=== PATIENT | female | born 2000 | race Hispanic/Latino ===

== ENCOUNTER 2021-09-27 16:28 | Emergency (ER) | payer OTHER, SELFPAY ==
--- NOTE | 2021-09-27 16:35 | ED.LOWEXIN ---
HPI - Extremity Injury (Lower) General Chief Complaint: Extremity Injury, Lower Stated Complaint: RT knee pain Time Seen by Provider: 09/27/21 16:35 Source: patient and RN notes reviewed Mode of arrival: ambulatory Limitations: no limitations History of Present Illness HPI Narrative: Patient states she was at a wedding on Sunday and was dancing jumping around. She felt a pop and had pain in her right knee. She iced it and elevated it and it has been doing better. complaint: knee injury Onset (ago): day(s) (3) Injury: Right: knee Type of Injury: inversion Place: street/outdoors Severity: moderate Relieving factors: nothing Exacerbating factors: weight bearing and movement Context: jumping Associated symptoms: snap/pop sensation Other symptoms: none Treatments prior to arrival: cold therapy Related Data Home Medications Medication Instructions Recorded Confirmed No Home Medications 09/27/21 09/27/21 Allergies Allergy/AdvReac Type Severity Reaction Status Date / Time No Known Allergies Allergy Verified 09/27/21 16:42 Review of Systems Review of Systems: All systems reviewed & are unremarkable except as noted in HPI and below PMFSH Past Medical History Medical History (Updated 09/27/21 @ 16:57 by Jus Harris MD) No active medical problems Surgical History Surgical History (Updated 09/27/21 @ 16:56 by Jus Harris MD) No pertinent past surgical history Family History Family History (System 10/14/20 @ 15:14 by Liam Juarez) Mother Hypertension Social History Social History (Updated 09/27/21 @ 16:56 by Jus Harris MD) Smoking status: Never smoker Alcohol intake: current Alcohol use details: Occasional Substance use: current Substance use type: marijuana Other substance usage details: occasional Exam Const: General: healthy appearing, no acute distress and alert Nutritional Appearance: well nourished Orientation/consciousness: patient oriented x3 Other: Female nurse in room during examination. HENMT: Head: normal to inspection Ears: external ears normal Eyes: General: appearance normal, both eyes and all related structures Conjunctivae: conjunctivae normal Pupils: Equal, round and reactive pupils present EOM: EOMs intact bilaterally Neck: Neck: normal visual inspection Resp: Effort & Inspection: normal respiratory effort Auscultation: clear to auscultation bilaterally Cardio: Rate: regular rate Rhythm: regular rhythm GI: GI Palp: Yes Soft to palpation and No Tenderness to palpation present (GI) Auscultation: normal bowel sounds Back/Spine/Pelvis: Cervical Spine: cervical ROM normal Thoracic/Lumbar Spine: thoraco-lumbar ROM normal Skin: General skin exam: normal color Rashes: no rashes Neuro: General: patient oriented x3, moves all extremities, no focal motor deficits and CN's II-XI intact bilaterally Speech: normal speech Gait exam (Neuro): Normal gait present Extrem: General: normal exam except as noted and no clubbing, cyanosis or edema Left lower extremity: knee Details: knee ligament exam normal Details: anterior drawer test normal, valgus stress test normal, varus stress test normal and Sharda's test normal and Catie's Test Details: positive medially (mild) Psych: Appearance: grossly normal and well kempt Mental Status: mental status grossly normal Affect: normal affect Attitude: cooperative Thought content: Yes Normal thought content present Discharge Plan Discharge Clinical Impression: Acute internal derangement of knee Qualifiers: Laterality: right Qualified Code(s): M23.91 - Unspecified internal derangement of right knee Patient Disposition: Home, Self-Care Condition: Stable Instructions: Knee Sprain (ED) Additional Instructions: can change to heat as needed. Follow-up with your primary care or orthopedic physician for further evaluation if needed. Prescriptions: No Action No Home Medications
[2021-09-27 16:39] VITALS: BP 179/94; PULSE 77; RESP 16; TEMP 36.2; O2SAT 100
[2021-09-27 17:03] VITALS: BP 179/94; PULSE 77; RESP 16; TEMP 36.2; O2SAT 100
== END 2021-09-27 17:04 | disposition home or self-care (01) ==
PROVIDERS: Emergency Provider Emergency Medicine; PCP Family Medicine
DX: M23.91 Unspecified internal derangement of right knee (principal)
CPT/HCPCS: 99281

== ENCOUNTER 2023-01-20 10:00 | Outpatient (CLI) | payer BC, SELFPAY ==
[2023-01-20 10:18] LABS: Hematocrit 43.6 % (35.0-49.0); Hemoglobin 14.6 g/dL (12.0-15.0); Mean Corpuscular HGB Conc 33.5 g/dL (32.0-36.0); Mean Corpuscular Hemoglobin 28.7 pg (27.0-31.0); Mean Corpuscular Volume 85.7 fL (78.0-102.0); Mean Platelet Volume 9.2 fl (9.2-11.8); Platelet Count Result 308 K/mm3 (150-420); Red Blood Count 5.09 M/mm3 (4.20-5.40); Red Cell Distribution Width 12.8 % (11.6-14.4); White Blood Count 5.5 K/mm3 (4.8-10.8)
[2023-01-20 11:16] LABS: Anion Gap 11 mmol/L (8-16); Blood Urea Nitrogen 10 mg/dL (7-18); Carbon Dioxide 24 mmol/L (21-32); Chloride 106 mmol/L (98-108); Estimated Glomerular Filt Rate > 60; Glucose 88 mg/dL (70-99); Osmolality Calculated 290 mOsm/kg (285-295); Potassium 3.9 mmol/L (3.5-5.1); Sodium 141 mmol/L (136-145); Thyroid Stimulating Hormone 2.32 uIU/mL (0.36-3.74)
[2023-01-25 19:10] LABS: Vitamin D 25 Hydroxy 26 ng/mL (30-100)
== END 2023-01-20 10:01 | disposition home or self-care (01) ==
LOC: CHSLAB 10:02
PROVIDERS: PCP Nurse Practitioner Family; Visit Provider Nurse Practitioner Family
DX: Z13.29 Encounter for screening for other suspected endocrine disorder (principal); E55.9 Vitamin D deficiency, unspecified; G43.909 Migraine, unspecified, not intractable, without status migrainosus
CPT/HCPCS: 36415; 80048; 82306; 84443; 85027

== ENCOUNTER 2023-12-10 13:47 | Emergency (ER) | payer BC, SELFPAY ==
--- NOTE | ~2023-12-10 | CT_ITS ---
EXAMINATION: CT abdomen pelvis w con DATE: 12/10/2023 15:22 INDICATION: Abdominal pain. Nausea. Constipation. TECHNIQUE: Computed tomography (CT) of the abdomen and pelvis was performed with 100 mL Omnipaque 350 intravenous contrast. Automated exposure control and iterative reconstruction technique were employe d. The dose-length product was 1146.97 mGy-cm. COMPARISON: None. FINDINGS: The visualized portions of the lung bases are clear without pneumonia or pleural effusion. The heart size is normal. No pericardial effusion. The liver, gallbladder, spleen, pancreas, adrenal glands, and kidneys are normal. There are no dilated loops of bowel. The appendix is normal. There ar e no pathologically enlarged lymph nodes. There is physiologic fluid in the pelvis. The bones are unr emarkable. IMPRESSION: 1. No etiology for the patient's symptoms. Reviewed, dictated and finalized at location E.
[2023-12-10 13:50] VITALS: BP 147/98; PULSE 85; RESP 18; TEMP 36.8
[2023-12-10 14:10] LABS: Appearance Urine Sl Cloudy (Clear); Bilirubin Urine Negative (Negative); Blood Urine Negative (Negative); Color Urine Yellow (Yellow); Glucose Urine UA Negative (Negative); Ketones Urine Negative (Negative); Leukocyte Esterase Ur Trace LEU/UL (Negative); Nitrate Urine Negative (Negative); Protein Urine Negative (Negative); Specific Grav Ur >= 1.030 (1.010-1.020); Urobilinogen Urine 0.2 mg/dL (0.2-1.0)
[2023-12-10 14:13] LABS: Urine Pregnancy Test Negative
[2023-12-10 14:14] LABS: Add Urine Microscopic? YES; Bacteria Urine 3+ /hpf; Pregnancy On Board Control Positive; RBC Urine None seen /hpf (0-2); Squamous Epithelial Cell Urine Moderate /hpf (Few); WBC Urine 0-3 /hpf (0-3)
[2023-12-10 14:22] LABS: Basophils Absolute Auto 0.04 K/mm3 (0.00-0.10); Basophils Percent Auto 0.5 % (0.0-1.0); Eosinophils Absolute Auto 0.13 K/mm3 (0.02-0.50); Eosinophils Percent Auto 1.6 % (1.0-6.0); Hematocrit 39.7 % (35.0-49.0); Hemoglobin 13.7 g/dL (12.0-15.0); Immature Granulocyte Absolute 0.02 K/mm3 (0.00-0.00); Immature Granulocyte Percent A 0.2 % (0.0-0.0); Lymphocytes Absolute Auto 2.11 K/mm3 (1.10-4.50); Lymphocytes Percent Auto 26.1 % (18.0-42.0); Mean Corpuscular HGB Conc 34.5 g/dL (32-36); Mean Corpuscular Hemoglobin 29.1 pg (27.0-31.0); Mean Corpuscular Volume 84.5 fL (78.0-102.0); Mean Platelet Volume 9.2 fl (9.2-11.8); Monocytes Absolute Auto 0.62 K/mm3 (0.10-0.90); Monocytes Percent Auto 7.7 % (2.0-11.0); Neutrophils Absolute Auto 5.17 K/mm3 (1.70-7.20); Neutrophils Percent Auto 63.9 % (50.0-70.0); Platelet Count Result 324 K/mm3 (150-420); Red Cell Distribution Width 12.5 % (11.6-14.4); White Blood Count 8.1 K/mm3 (4.8-10.8)
[2023-12-10] MEDS: SODIUM CHLORIDE 0.9% IV 1,000 ML 999 ML IV CONT (14:33)
[2023-12-10 14:38] LABS: Alanine Aminotransferase 13 U/L (14-59); Albumin Level 3.9 g/dL (3.4-5.0); Alkaline Phosphatase 68 U/L (46-116); Anion Gap 9 mmol/L (4-12); Aspartate Amino Transferase 13 U/L (15-37); Bilirubin,Total 0.6 mg/dL (0.00-1.00); Blood Urea Nitrogen 10 mg/dL (7-18); Calcium 9.1 mg/dL (8.5-10.1); Carbon Dioxide 25 mmol/L (21-32); Chloride 103 mmol/L (98-108); Estimated CRCL calculation 97 ml/min; Estimated Glomerular Filt Rate > 60; Glucose 86 mg/dL (70-99); Lipase 25 U/L (16-77); Osmolality Calculated 282 mOsm/kg (285-295); Potassium 3.5 mmol/L (3.5-5.1); Sodium 137 mmol/L (136-145); Total Protein 7.6 g/dL (6.4-8.2)
[2023-12-10 14:41] LABS: Lactic Acid Reflex 0.8 mmol/L (0.4-2.0)
[2023-12-10 14:45] LABS: INR 0.9; Partial Thromboplastin Time 29.9 Sec (23.9-30.70); Prothrombin Time 10.1 Seconds (9.50-12.1)
--- NOTE | 2023-12-10 15:23 | PC.NURSE ---
PT HAS RETURNED FROM CT, AWAITING RESULTS AT THIS TIME. MOTHER AT BEDSIDE. DENIES ANY NEEDS OR COMPLAINTS. WILL CONTINUE TO MONITOR.
--- NOTE | 2023-12-10 15:37 | ED.ABDPAIN ---
HPI - Abdominal Pain General Chief Complaint: Abdominal Pain Stated Complaint: ab. pain Time Seen by Provider: 12/10/23 13:51 Source: patient and family Mode of arrival: ambulatory Limitations: no limitations History of Present Illness HPI narrative: this is a 23-year-old female that presents with right lower quadrant pain and radiates into her suprapubic area with no dysuria no hematuria no fever chills. Patient states that she is not had a menstrual period since late October, there is having some nausea with no episodes of vomiting no diarrhea constipation no chest pain or shortness of breath. MD elicited complaint: abdominal pain and flank pain Pertinent past history: none Onset (ago): day(s) Pain Consistency: constant Severity: mild Related Data Allergies Allergy/AdvReac Type Severity Reaction Status Date / Time No Known Allergies Allergy Verified 12/10/23 13:59 Review of Systems Review of Systems: All systems reviewed & are unremarkable except as noted in HPI and below PMFSH Past Medical History Medical History BMI 38.0-38.9,adult No active medical problems Surgical History Surgical History No pertinent past surgical history Family History Family History Mother Hypertension Father Heart disease Sibling No problems noted. 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 Gender identity (if verbalized by the patient): Female Exam Const: General: cooperative, healthy appearing, comfortable, no acute distress and well developed HENMT: Head: normal to inspection Chest: Chest palpation & inspection: normal inspection of the chest and normal palpation of entire chest wall Resp: Effort & Inspection: normal respiratory effort and able to speak in complete sentences Cardio: Jugular venous distension: no JVD Palpation: normal PMI Rate: regular rate Rhythm: regular rhythm GI: Inspection: normal to inspection GI Palp: Yes abdominal tenderness Auscultation: normal bowel sounds : General: Yes bimanual renal exam normal bilaterally Neuro: General: oriented to person, oriented to place, oriented to time and patient oriented x3 Course Course Emergency Course: CT of the abdomen and pelvis without any significant abnormality the UA shows 3+ bacteria consistent with urinary tract infection the rest of her blood work unremarkable patient received IV fluids Vital Signs Vital signs: Vital Signs Oxygen Delivery Room Air 12/10/23 13:47 Temperature 36.8 C 12/10/23 13:50 Pulse Rate 85 12/10/23 13:50 Respiratory Rate 18 12/10/23 13:50 Blood Pressure 147/98 H 12/10/23 13:50 Oxygen Delivery Room Air 12/10/23 13:50 MDM - Abdominal Pain Lab Data 12/10/23 14:17 12/10/23 14:17 Labs: Lab Results 12/10/23 12/10/23 Range/Units 14:00 14:17 WBC 8.1 (4.8-10.8) K/mm3 RBC 4.70 (4.20-5.40) M/mm3 Hgb 13.7 (12.0-15.0) g/dL Hct 39.7 (35.0-49.0) % MCV 84.5 (78.0-102.0) fL MCH 29.1 (27.0-31.0) pg MCHC 34.5 (32-36) g/dL RDW 12.5 (11.6-14.4) % Plt Count 324 (150-420) K/mm3 MPV 9.2 (9.2-11.8) fl Immature Gran % (Auto) 0.2 H (0.0-0.0) % Neut % (Auto) 63.9 (50.0-70.0) % Lymph % (Auto) 26.1 (18.0-42.0) % [place] % (Auto) 7.7 (2.0-11.0) % Eos % (Auto) 1.6 (1.0-6.0) % Baso % (Auto) 0.5 (0.0-1.0) % Lymph # (
[2023-12-10 15:50] VITALS: BP 144/80; PULSE 87; RESP 16; O2SAT 98
== END 2023-12-10 15:50 | disposition home or self-care (01) ==
PROVIDERS: Emergency Provider Emergency Medicine; PCP Family Medicine
DX: N39.0 Urinary tract infection, site not specified (principal)
CPT/HCPCS: 36415; 74177; 80053; 81001; 81025; 83605; 83690; 85025; 85610; 85730; 96360; 99284; J7030; Q9967

== ENCOUNTER 2024-12-04 15:45 | Emergency (ER) | payer BC, SELFPAY ==
--- NOTE | ~2024-12-04 | CT_ITS ---
CLINICAL INDICATION: Right lower quadrant pain COMPARISON: 12/10/2023. TECHNIQUE: Multiple contiguous axial images of the abdomen and pelvis were performed following the ad ministration of with 100 mL Omnipaque-350 intravenous contrast The dose-length product (DLP) was 1124.56 mGy-cm. Automated exposure control and iterative reconstruction technique were employed. FINDINGS/OBSERVATIONS: Visualized lower thorax: The bilateral lung bases are clear. The heart is of normal size, without pericardial effusion. Small hiatal hernia is present. Liver: The liver demonstrates homogeneous enhancement and is borderline enlarged measuring 19 cm in longitud inal dimension. Gallbladder and biliary system: The gallbladder is only minimally distended, and otherwise unremarkable. Pancreas: The pancreas enhances homogeneously without ductal dilatation. Spleen: The spleen enhances homogeneously and is not enlarged.. Kidneys: 5 mm calculus within the upper pole of the left kidney. Prominence of the bilateral renal pelvises, without obstructing calculi, likely secondary to bladder distention. The remainder of the bilateral kidneys otherwise enhance symmetrically without hydronephrosis or kayden tional renal calculi. Adrenal glands: Unremarkable. Gastrointestinal tract: Fecal stasis within the colon. Appendix: The air-filled appendix is of normal caliber (axial series, images 96 through 112) Vasculature: Unremarkable. Lymph nodes: No pathologically enlarged or morphologically suspicious lymph nodes within the retroperitoneum or at the root of the mesentery. Pelvic structures: The bladder is distended, and otherwise unremarkable. The the uterus is anteverted and anteflexed retroflexed. A 27 mm involuting cyst is identified within the right hemipelvis, likely an involuting cyst. Body wall and musculoskeletal: Small fat-containing right inguinal hernia. No significant degenerative disease within the lower thoracic or lumbosacral spine. IMPRESSION: Normal appendix. Involuting cyst within the right hemipelvis for which ultrasound may be performed for confirmation. Small fat-containing right inguinal hernia. Reviewed, dictated and finalized at location A. IMPRESSION: Normal appendix. Involuting cyst within the right hemipelvis for which ultrasound may be perform ed for confirmation. Small fat-containing right inguinal hernia.
[2024-12-04 15:45] VITALS: BP 177/94; PULSE 100; RESP 18; TEMP 36.7; O2SAT 98
[2024-12-04 16:08] LABS: Add Urine Microscopic? YES; Appearance Urine Clear (Clear); Glucose Urine UA Negative (Negative); Leukocyte Esterase Ur Negative LEU/UL (Negative); Nitrate Urine Negative (Negative); Specific Grav Ur 1.020 (1.010-1.020)
[2024-12-04] MEDS: SODIUM CHLORIDE 0.9% IV 1,000 ML 999 ML IV CONT (16:11)
[2024-12-04] MEDS: ONDANSETRON INJ 4 MG/2 ML VIAL IV PUSH (16:11)
[2024-12-04 16:16] LABS: Pregnancy On Board Control Positive
[2024-12-04 16:24] LABS: Hematocrit 41.3 % (35.0-49.0); Hemoglobin 13.9 g/dL (12.0-15.0); Immature Granulocyte Percent A 0.4 % (0.0-0.0); Lymphocytes Absolute Auto 2.41 K/mm3 (1.10-4.50); Mean Corpuscular HGB Conc 33.7 g/dL (32-36); Mean Corpuscular Hemoglobin 28.3 pg (27.0-31.0); Mean Corpuscular Volume 84.1 fL (78.0-102.0); Nucleated Red Blood Cells Absolute Auto 0.00 K/mm3 (0.00-0.00); Nucleated Red Blood Cells Perc 0.0 % (0-0.0); Platelet Count Result 398 K/mm3 (150-420); Red Blood Count 4.91 M/mm3 (4.20-5.40); White Blood Count 9.4 K/mm3 (4.8-10.8)
[2024-12-04 16:34] LABS: Alanine Aminotransferase 23 U/L (6-35); Albumin Level 4.6 g/dL (3.5-5.1); Alkaline Phosphatase 81 U/L (38-126); Anion Gap 7 mmol/L (4-12); Aspartate Amino Transferase 28 U/L (14-36); Bilirubin,Total 0.7 mg/dL (0.2-1.3); Blood Urea Nitrogen 11 mg/dL (7-17); Calcium 9.2 mg/dL (8.4-10.2); Carbon Dioxide 27 mmol/L (22-30); Chloride 108 mmol/L (98-107); Estimated CRCL calculation 102 ml/min; Estimated Glomerular Filt Rate > 60; Glucose 99 mg/dL (65-110); Lipase 60 U/L (23-300); Osmolality Calculated 293 mOsm/kg (285-295); Potassium 3.6 mmol/L (3.4-5.0); Sodium 142 mmol/L (137-145); Total Protein 7.7 g/dL (6.3-8.2)
[2024-12-04 16:37] LABS: INR 0.9; Partial Thromboplastin Time 31.2 Sec (23.9-30.70); Prothrombin Time 10.1 Seconds (9.50-12.1)
[2024-12-04 17:05] VITALS: BP 131/79; PULSE 93; RESP 16; O2SAT 99
--- NOTE | 2024-12-04 17:24 | ED.ABDPAIN ---
HPI - Abdominal Pain General Chief Complaint: Abdominal Pain Stated Complaint: abdominal pain Time Seen by Provider: 12/04/24 15:53 Source: patient Mode of arrival: ambulatory Limitations: no limitations History of Present Illness HPI narrative: this is a 24-year-old female who presents with right lower quadrant abdominal pain was seen at an urgent care and was diagnosed with urinary tract infection and started on antibiotics. Patient abdominal pain persisted currently at about a 3/10 no cramping does have some mild right flank pain with no fever chills no hematuria does have nausea with vomiting. MD elicited complaint: abdominal pain Onset (ago): day(s) Related Data Allergies Allergy/AdvReac Type Severity Reaction Status Date / Time No Known Allergies Allergy Verified 12/04/24 15:54 Review of Systems Review of Systems: All systems reviewed & are unremarkable except as noted in HPI and below PMFSH Past Medical History Medical History BMI 38.0-38.9,adult No active medical problems Surgical History Surgical History No pertinent past surgical history Family History Family History Mother Hypertension Father Heart disease Sibling No problems noted. Grandparent Breast cancer Social History Social History Smoking status: Never smoker Second hand tobacco smoke exposure: Yes Alcohol intake: current Alcohol use details: rare Substance use: current Substance use type: marijuana Other substance usage details: occasional Do You Feel Safe in your Home?: Yes Lack of Transportation: No Lack of Food: Never True Current Housing: I Have Housing Concerned About Future Housing: No Difficulty Paying Gas/Electric Bills: No Difficulty Paying for Meds: No Currently Unemployed: No Education: High School Diploma/GED Difficulty w/ Childcare or Family Care: No Living arrangements: with family Occupation/Education: occupation 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, 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 Gender identity (if verbalized by the patient): Female Sexual Orientation (if Verbalized by the Patient): Straight or Heterosexual Exam Const: General: healthy appearing and no acute distress Nutritional Appearance: well nourished Orientation/consciousness: patient oriented x3 Limitations: no limitations Chest: Chest palpation & inspection: normal inspection of the chest Resp: Effort & Inspection: normal respiratory effort Auscultation: clear to auscultation bilaterally Cardio: Rate: regular rate Rhythm: regular rhythm GI: GI Palp: Yes Soft to palpation and Yes Tenderness to palpation present (GI) Auscultation: normal bowel sounds : General: Yes bladder normal to palpation Urinary Catheter: Urinary Catheter: patent and draining Back/Spine/Pelvis: Back: CVA tenderness Skin: General skin exam: normal color Course Course Emergency Course: Patient had a CT scan with no acute abdominal process does show a right ovarian cyst, urinalysis was positive but currently on antibiotics from an urgent care. Blood pressure stable 131/79 patient received IV fluids and Zofran for nausea. Labs were unremarkable. Vital Signs Vital signs: Vital Signs Temperature 36.7 C 12/04/24 15:45 Pulse Rate 100 12/04/24 15:45 Respiratory Rate 18 12/04/24 15:45 Blood Pressure 177/94 H 12/04/24 15:45 Pulse Oximetry 98 12/04/24 15:45 Oxygen Delivery Room Air 12/04/24 15:45 Temperature 36.7 C 12/04/24 15:45 Pulse Rate 93 12/04/24 17:05 Respiratory Rate 16 12/04/24 17:05 Blood Pressure 131/79 12/04/24 17:05 Pulse Oximetry 99 12/04/24 17:05 Oxygen Delivery Room Air 12/04/24 17:05 MDM - Abdominal Pain Lab Data 12/04/24 16:15 12/04/24 16:15 Labs: Lab Results 12/04/24 12/04/24 Range/Units 15:51 16:15 WBC 9.4 (4.8-10.8) K/mm3 RBC 4.91 (4.20-5.40) M/mm3 Hgb 13.9 (12.0-15.0) g/dL Hct 41.3 (35.0-49.0) % MCV 84.1 (78.0-102.0) fL MCH 28.3 (27.0-31.0) pg MCHC 33.7 (32-36) g/dL RDW 12.7 (11.6-14.4) % Plt Count 398 (150-420) K/mm3 MPV 9.1 L (9.2-11.8) fl Immature Gran % (Auto) 0.4 H (0.0-0.0) % Neut % (Auto) 67.2 (50.0-70.0) % Lymph % (Auto) 25.7 (18.0-42.0) % [place] % (Auto) 5.3 (2.0-11.0) % Eos % (Auto) 0.9 L (1.0-6.0) % Baso % (Auto) 0.5 (0.0-1.0) % Lymph # (Auto) 2.41 (1.10-4.50) K/mm3 [place] # (Auto) 0.50 (0.10-0.90) K/mm3 Eos # (Auto) 0.08 (0.02-0.50) K/mm3 Baso # (Auto) 0.05 (0.00-0.10) K/mm3 Abs Immat Gran (auto) 0.04 H (0.00-0.00) K/mm3 Absolute Neuts (auto) 6.30 (1.70-7.20) K/mm3 Absolute Nucleated RBC 0.00 (0.00-0.00) K/mm3 Nucleated RBC % 0.0 (0-0.0) % PT 10.1 (9.50-12.1) Seconds INR 0.9 APTT 31.2 H (23.9-30.70) Sec Sodium 142 (137-145) mmol/L Potassium 3.6 (3.4-5.0) mmol/L Chloride 108 H (98-107) mmol/L Carbon Dioxide 27 (22-30) mmol/L Anion Gap 7 (4-12) mmol/L BUN 11 (7-17) mg/dL Creatinine 0.79 (0.7-1.0) mg/dL Estim Creat Clear Calc 102 ml/min Estimated GFR > 60 (59 - ) Glucose 99 (65-110) mg/dL Calculated Osmolality 293 (285-295) mOsm/kg Lactic Acid 0.8 (0.4-2.0) mmol/L Calcium 9.2 (8.4-10.2) mg/dL Total Bilirubin 0.7 (0.2-1.3) mg/dL AST 28 (14-36) U/L ALT 23 (6-35) U/L Alkaline Phosphatase 81 (38-126) U/L Total Protein 7.7 (6.3-8.2) g/dL Albumin 4.6 (3.5-5.1) g/dL Lipase 60 (23-300) U/L Urine Color Yellow (Yellow) Urine Appearance Clear (Clear) Urine pH 6.0 (5.0-8.0) Ur Specific [place] 1.020 (1.010-1.020) Urine Protein Negative (Negative) Urine Glucose (UA) Negative (Negative) Urine Ketones Negative (Negative) Ur Blood (Man) 2+ H (Negative) Urine Nitrate Negative (Negative) Urine Bilirubin Negative (Negative) Urine Urobilinogen 0.2 (0.2-1.0) mg/dL Leukocyte Esterase Rfl Negative (Negative) DAGO/UL Urine RBC 3-5 H (0-2) /hpf Urine WBC 0-3 (0-3) /hpf Ur Squamous Epith Cells Moderate H (Few) /hpf Urine Bacteria 1+ H (None) /hpf Urine Test Negative Imaging Data Radiologist's impression: ITS Impressions Abdomen/Pelvis CT 12/04/24 16:59 IMPRESSION: Normal appendix. Involuting cyst within the right hemipelvis for which ultrasound may be performed for confirmation. Small fat-containing right inguinal hernia. Critical Care Time Critical Care Time Critical Care Time: No Discharge Plan Discharge Clinical Impression: Ovarian cyst Qualifiers: Laterality: right Qualified Code(s): N83.201 - Unspecified ovarian cyst, right side Patient Disposition: Home Condition: Stable Instructions: Antibiotic Form, Ovarian Cyst (ED), Abdominal Pain (ED) Additional Instructions: advised patient to use Tylenol or Motrin as needed and take medication as prescribed and follow with primary In 3 to 5 days for further evaluation and treatment. Patient Language: Chinese Prescriptions: New ondansetron 4 mg tablet,disintegrating 4 mg PO Q6H PRN (Reason: nausea and vomiting) Qty: 10 0RF No Action Ubrelvy 50 mg tablet 50 mg PO ONCE Qty: 10 1RF Rx Instructions: as a single dose; may repeat once in >=2 hours after first dose if needed Follow-up/Referrals: Cruz Austin MD [Primary Care Provider] - Time of Disposition: 17:30
[2024-12-04 17:35] VITALS: TEMP 36.9
== END 2024-12-04 17:35 | disposition home or self-care (01) ==
PROVIDERS: Emergency Provider Emergency Medicine; PCP Family Medicine
DX: N83.201 Unspecified ovarian cyst, right side (principal)
CPT/HCPCS: 36415; 74177; 80053; 81001; 81025; 83605; 83690; 85025; 85610; 85730; 96361; 96374; 99284; J2405; J7030; Q9967

== ENCOUNTER 2024-12-10 09:22 | Outpatient (CLI) | payer BC, SELFPAY ==
--- NOTE | ~2024-12-10 | US_ITS ---
Pelvic ultrasound. Clinical History: Ovarian cyst Technique: Realtime transabdominal and transvaginal scanning of the pelvis was performed. Color flow Doppler and Doppler spectral analysis were performed. Findings: The uterus is anteverted. The endometrial stripe has a thickness of 8 mm. No focal mass is identified. The right ovary measures 2.5 x 2.4 x 2.9 cm. No significant right ovarian or adnexal mass is seen. The left ovary measures 2.4 x 2.5 x 2.1 cm. No significant left ovarian or adnexal mass is seen. There is trace free fluid in the cul de sac. Impression: Trace free fluid present. No other significant findings. Reviewed, dictated and finalized at location . Impression: Trace free fluid present. No other significant findings.
== END 2024-12-10 09:23 | disposition home or self-care (01) ==
LOC: CHSIMG 09:22
PROVIDERS: PCP Family Medicine; Visit Provider Student in an Organized Health Care Education/Training Program
DX: N83.201 Unspecified ovarian cyst, right side (principal)
CPT/HCPCS: 76830; 76856